=== PATIENT | female | born 1995 | race Caucasian/White ===

== ENCOUNTER 2021-01-04 11:54 | Emergency (ER) | payer OTHER, SELFPAY ==
[2021-01-04 11:58] VITALS: BP 151/76; PULSE 96; RESP 13; TEMP 37.2; O2SAT 100; BMI 20.1
--- NOTE | 2021-01-04 12:20 | ED_ITS ---
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 She complains of severe pain in comes in for further evaluation. Related Data Allergies Allergy/AdvReac Type Severity Reaction Status Date / Time No Known Drug Allergies Allergy Verified 01/04/21 12:03 Review of Systems Review of Systems Narrative: Pertinent positive and negative findings as per HPI Remainder of review of systems is otherwise unremarkable for Constitutional: Fevers, chills, weakness ENT: No sore throat, neck pain, CV: Chest pain, palpitations, Respiratory: Cough, wheeze, dyspnea GI: Nausea, vomiting, diarrhea, Patient History Social History Smoking Status: Current every day smoker Smoking Status: Current every day smoker alcohol intake frequency: holidays/special occasions only Substance Use Type: does not use Exam Narrative Exam Narrative: General: Alert appropriate in no acute distress Respiratory: Able to speak in full sentences, no obvious respiratory distress Skin: No obvious rashes, warm and dry Neurologic: Grossly intact no obvious asymmetries or abnormalities Psych: appropriate insight and affect, cooperative Extremity: The very tip of her left thumb has approximately 3 mm of the distal finger nail cut off and a 2-3 mm of epithelium has been displaced just distal to the fingernail. It does not go into subcutaneous tissue or the nail bed. Initial Vital Signs Initial Vital Signs: Vital Signs Temperature 99.0 F 01/04/21 11:58 Pulse Rate 96 H 01/04/21 11:58 Respiratory Rate 13 01/04/21 11:58 Blood Pressure 151/76 H 01/04/21 11:58 Pulse Oximetry 100 01/04/21 11:58 Course Vital Signs Vital signs: Vital Signs - 8 hr 01/04/21 11:58 Temperature 99.0 F Pulse Rate 96 H Respiratory Rate 13 Blood Pressure 151/76 H Pulse Oximetry 100 MDM - Wound/Laceration MDM Narrative Medical decision making narrative: Minor cut to non dominant left thumb while at work with a carbon paper coating machine setter. Bacitracin and dressing applied. L and I forms filled out. She is safe for home discharge Discharge Plan Departure Patient Disposition: Home Clinical Impression: Avulsion of skin Instructions: DI for Minor Laceration Activity Restrictions/Additional Instructions: Thank you for coming in Fortunately, this wound is going to heal nicely. Using a little bit of antibiotic ointment and a Band-Aid over the wound until it is not as tender will be appropriate. I hope you heal quickly
[2021-01-04] MEDS: BACITRACIN OINT 0.9 GM PCKT 1 APPLIC TOP (12:56)
== END 2021-01-04 13:02 | disposition home or self-care (01) ==
PROVIDERS: Emergency Provider Emergency Medicine; PCP Nurse Practitioner
DX: S61.002A Unspecified open wound of left thumb without damage to nail, initial encounter (principal); W26.9XXA Contact with unspecified sharp object(s), initial encounter; Y99.0 Civilian activity done for income or pay
CPT/HCPCS: 99282; 99283